=== PATIENT | male | born 1955 | race Caucasian/White ===

== ENCOUNTER 2019-12-07 08:42 | Inpatient (IN) | payer SELFPAY ==
[2019-12-07 09:07] LABS: #Eosinphils 0.2 thou/uL (0.0-0.7); #Lymphocytes 1.5 thou/uL (1.20-3.40); #Monocytes 0.7 thou/uL (0.11-0.59); #Neutrophils 5.6 thou/uL (1.40-6.50); %Basophils 0.5 % (0.0-1.0); %Eosinophils 2.2 % (0.0-10.0); %Lymphocytes 18.7 % (21.0-51.0); %Monocytes 9.1 % (0.0-10.0); %Neutrophils 69.5 % (42.0-75.0); Hemoglobin 15.2 g/dL (14.0-18.0); Mean Corpuscular HGB CONC 32.7 g/dL (32.0-36.0); Mean Corpuscular Hemoglobin 30.8 pg (27.0-31.0); Mean Corpuscular Volume 94.4 fL (78.0-98.0); Mean Platelet Volume 7.3 fL (7.4-10.4); Platelet Count 256 thou/uL (130-400); RBC Distribution Width 11.5 % (11.5-14.5); Red Blood Cell (RBC) Count 4.93 mill/uL (4.70-6.10)
--- NOTE | 2019-12-07 09:15 | CT ---
Exam: Head CT without contrast HISTORY: Level 2 stroke. Headache, starting Tuesday. Right-sided weakness. COMPARISON: none FINDINGS: Hemorrhage: There is a right frontal extra-axial hematoma which extends to the vertex, measuring 0.9 cm along the frontal convexity. Early chronic hematoma is suspected. There is isodense left frontal temporal and parietal extra-axial hematoma measuring 1.8 cm long the frontal temporal convexity, comp atible with a lead acute subdural hematoma. There is also evidence of hyperdense blood along the right parafalcine region. Slightly more hyperdense extra-axial hemorrhage is noted along the anterior inferior bifrontal convexities. Brain parenchyma: There is mass effect upon the left and right cerebrum. There is no midline shift. B asilar cisterns are patent. Ventricular system: No hydrocephalus. Calvarium: Intact. Sinuses and mastoid air cells: Adequate aeration. IMPRESSION: 1. Extensive bilateral left greater than right extra-axial hematoma is compatible with subdural hemat omas. 2. Small amount of right parafalcine hemorrhage. 2. Mass effect upon both frontal lobes. No midline shift. 4. Results of study discussed with Dr. Bradley 12/07/2019 9:12 AM Code CR
[2019-12-07] MEDS ORDERED: niCARdipine 20MG In NaCl 20 MG/200 ML BAG ONE (09:16)
--- NOTE | 2019-12-07 09:21 | RAD ---
Exam: Chest one view HISTORY:Transient ischemic attack Comparison: None FINDINGS: Cardiac silhouette: Normal Aorta: Unremarkable Pulmonary vessels: Normal Costophrenic angles: Clear LUNGS: No masses or consolidation. Scattered interstitial opacities which are presumed be chronic. Pneumothorax: None Osseous abnormalities: None IMPRESSION: Presumed chronic lung parenchymal changes.
[2019-12-07 09:34] LABS: ALT (SGPT) 13 U/L (8-55); AST (SGOT) 18 U/L (5-34); Albumin 4.3 g/dL (3.4-4.8); Alkaline Phosphatase 73 U/L (40-110); Anion Gap 13 mmol/L (10-20); BUN (Urea Nitrogen) 7 mg/dL (8.4-25.7); Bilirubin, Total 0.9 mg/dL (0.2-1.2); Calc. Creatinine Clearance 0 mL/min (70-130); Carbon Dioxide 25 mmol/L (23-31); Chloride 100 mmol/L (98-107); Estimated GFR-MDRD Greater than 90; Globulin 2.2 g/dL (2.4-3.5); Glucose 102 mg/dL (80-115); Protein, Total 6.5 g/dL (5.8-8.1); Sodium 134 mmol/L (136-145)
[2019-12-07 09:35] LABS: INR-International Normal Ratio 0.9; PTT 32.7 SEC (22.9-36.1); Prothrombin Time 12.1 SEC (12.0-14.7)
[2019-12-07] MEDS ORDERED: Thrombin 5000 UNITS/5 ML VIAL ONE (10:33)
[2019-12-07] MEDS ORDERED: Lidocaine 0.5%/Epinephrine 1:200,000 50 ml Vial ONE (10:40)
[2019-12-07] MEDS ORDERED: Fentanyl 100 MCG/2 ML VIAL ONE ×2 (10:43→12:50)
[2019-12-07] MEDS ORDERED: Famotidine/PF 20 mg/2ml Vial ONE (10:43)
[2019-12-07] MEDS ORDERED: Labetalol HCl 100 MG/20 ML VIAL SLOW IVP PRN (10:54)
[2019-12-07] MEDS ORDERED: Ondansetron PF 4 MG/2 ML Vial IVP PRN (10:54)
[2019-12-07] MEDS ORDERED: CEFAZOLIN 2 GM in Premix Bag 1 BAG IVPB SCH ×2 (11:00→19:00)
[2019-12-07] MEDS ORDERED: Dexamethasone 20 MG/5 ML VIAL ONE (13:41)
[2019-12-07] MEDS ORDERED: Rocuronium Bromide 10 MG/ML (10ML VIAL) ONE (13:41)
[2019-12-07] MEDS ORDERED: Lidocaine 1% PF 5 ML VIAL ONE (13:41)
[2019-12-07] MEDS ORDERED: PHENYLEPHRINE-NS 100 MCG/ML 10 ML SYRINGE ONE (13:41)
[2019-12-07] MEDS ORDERED: EPHEDRINE 25 MG/5 ML SYRINGE ONE (13:41)
[2019-12-07] MEDS ORDERED: Succinylcholine Chloride 20 MG/ML 10 ml SYRINGE FS ONE (13:41)
[2019-12-07] MEDS ORDERED: PROPOFOL 200 MG/20 ML VIAL ONE (13:41)
[2019-12-07] MEDS ORDERED: Ondansetron PF 4 MG/2 ML Vial ONE (13:41)
[2019-12-07] MEDS ORDERED: Metoclopramide HCl 10 MG/2 ML VIAL ONE (13:41)
[2019-12-07] MEDS ORDERED: Glycopyrrolate 0.2 MG/ML 5 ML SYRINGE ONE (13:41)
[2019-12-07] MEDS ORDERED: Ondansetron HCl/PF 4 MG/2 ML Vial IVP PRN (14:56)
[2019-12-07] MEDS ORDERED: Promethazine HCl 25 MG/ML VIAL SLOW IVP PRN (14:56)
--- NOTE | 2019-12-07 15:02 | PRG ---
DATE OF SERVICE: 12/07/2019 SUBJECTIVE: I personally examined the patient, reviewed the records and imaging, and agreed with documentation of Norman Haji PA-C. Briefly, Deyvi Fischer is a 64-year-old gentleman without a significant past medical history, who was evaluated by his primary care physician today and found to have right hemiparesis which was [id number], manifests mostly as a pronator drift. He was sent to the emergency department for evaluation where CT examination of brain revealed bilateral chronic subdural hematomas, larger on the left than the right, but with mass effect on both sides. OBJECTIVE: On examination, Mr. Fischer indeed had a right hemiparesis, did not have significant speech difficulty, however. ASSESSMENT AND PLAN: Mr. Fischer was taken from the emergency department to the operating room for bob hole evacuation of the subdural hematomas and placement of subdural drains. Consent was obtained. Job ID: [id number]
--- NOTE | 2019-12-07 15:18 | OP ---
DATE OF PROCEDURE: 12/07/2019 CAMELID FIBER SORTER: Norman Haji PA-C. PREOPERATIVE INDICATION: Prevent neurological deterioration. PREOPERATIVE DIAGNOSIS: Bilateral subdural hematomas, chronic, with mass effect. POSTOPERATIVE DIAGNOSIS: Bilateral subdural hematomas, chronic, with mass effect. OPERATIVE PROCEDURE: Bilateral bob hole evacuation of subdural hematomas and placement of subdural drains. DESCRIPTION OF PROCEDURE: The patient was brought to the operating room. General endotracheal anesthesia was induced. The patient was first placed in the right lateral decubitus position with the head supported by a gel-filled doughnut shaped headrest. Hair was removed with electric clippers in a paramedian fashion on the left side of the scalp, giving us access to the frontal parietal bones and an exit point for our drain. We marked out planned incisions, and under the daley, we infused local anesthetic. The scalp was sterilely prepped and draped. We opened 2 incisions with a 10 blade knife and controlled bleeding with bipolar and monopolar cautery. We dissected down to the periosteal layer and reflected laterally and we placed self-retaining retractors. With the high-speed drill and a perforating bit, we placed a bob hole in the frontal bone and parietal bone and waxed the edges of the bob hole. We coagulated the dura with bipolar cautery and then incised the dura starting with the parietal bob hole and then the frontal bob hole. As we incised, chronic appearing dark red blood products emanated under some pressure. With both bob holes open, we irrigated the subdural space until the irrigant ran clear. We then brought a red rubber catheter into the field. The 10-Guamanian catheter had extra side holes cut into it. We then advanced it gently into the subdural space through the parietal bob hole and tunneled posteriorly through a separate stab incision. We connected the distal part of the drain to an EVD drainage kit. We irrigated copiously with bacitracin irrigation through the bob holes and the drain was working nicely. We covered the bob holes with a large amount of Gelfoam and then closed the wounds in anatomical layers. After completion of the 1st portion of the operation, we turned the head to the left and supported it with a gel-filled doughnut shaped headrest on that side. Hair was removed in paramedian fashion on the right side of the scalp. We planned out our incisions as we had done on the previous side. We infused local anesthetic and we sterilely prepped and draped. On the right side, we also opened incisions over the frontal and parietal bones and used a high-speed drill to fashion bur holes. We waxed the edges of the bob holes. We then coagulated the dura and opened it in a cruciate fashion. We started with the parietal bob hole and then the frontal. Chronic appearing blood products emanated under some pressure. Through the parietal bob hole, there was an extra membrane deep that gave us access to another pocket of chronic appearing blood products. We irrigated copiously with bacitracin irrigation until the irrigant ran clear. A red rubber catheter was brought into the field and we cut extra side holes into it. Catheter was placed carefully in the subdural space and tunneled posteriorly through a separate stab incision to an EVD drainage system. We irrigated and tried to fill the subdural space with irrigant and then placed Gelfoam over the bob holes and closed the incisions in anatomical layers. We applied sterile dressings. This was a clean case, no contamination. Job ID: [id number]
[2019-12-07] MEDS: Sodium Chloride 0.9% 1,000 ML IV SCH (16:07)
[2019-12-07 17:19] VITALS: BMI 19.5
[2019-12-07] MEDS: CEFAZOLIN 2 GM in Premix Bag 1 BAG IVPB SCH (18:07)
[2019-12-07] MEDS: Pantoprazole 40 MG VIAL IVP SCH (19:58)
[2019-12-07] MEDS: Sodium Chloride 0.9% (PF) 10 ML VIAL FS PRN (19:58)
--- NOTE | 2019-12-07 21:50 | HP ---
DATE OF CONSULTATION: 12/06/2016 CHIEF COMPLAINT: "I have headache for 5 days now, it won't go away." HISTORY OF PRESENT ILLNESS: Mr. Fischer is a 64-year-old gentleman, who complains of headache since Tuesday and will not go away. He states he has right hemiparesis. He states he was started on losartan 25 mg and baby aspirin about 2 weeks ago from his primary care at [facility]. He states his headache has not been going away and still has profound right weakness which is affecting his gait. Denies any speech or memory issues. CURRENT MEDICATIONS: 1. Losartan 25 mg. 2. Aspirin 81 mg. ALLERGIES: NO KNOWN ALLERGIES. FAMILY HISTORY: Mother is alive and well. Father in 1982, had cancer and from an MS. SOCIAL HISTORY: One pack per day for 50+ years. Alcohol, 4 beers daily. SURGICAL/HOSPITALIZATION HISTORY: Denies any surgical or hospitalization history. REVIEW OF SYSTEMS: CONSTITUTIONL: Denies fever or chills. EAR, NOSE, AND THROAT: Denies change in vision or hearing. CARDIAC: Denies chest pain, shortness of breath, or diaphoresis. PULMONARY: Denies shortness of breath, cough, or hemoptysis. GI: Denies abdominal pain, nausea, vomiting, diarrhea, change in stool formation and consistency. : Denies trouble with urination, frequency of urination, or bloody urine. SKIN: Denies skin rash, bruising, bleeding, or skin masses. MUSCULOSKELETAL: Complains of right-sided weakness since Tuesday. NEUROLOGICAL: As per history of present illness. PSYCHOLOGICAL: Denies anxiety, depression, or behavior changes. LABORATORY DATA: WBC 8.0, platelet count 256. INR 0.9. IMAGING STUDIES: CT of the brain revealed bilateral chronic subdural hematomas, larger on the left than the right without mass effect on both sides. PHYSICAL EXAMINATION: VITAL SIGNS: Blood pressure in the emergency room was 143/73, pulse 78, respiratory rate 18. Pain scale was 0. HEENT: Pupils are equal. Extraocular movements are intact. NECK: Soft, supple. No masses are noted. Range of motion is intact and nonpainful. NEUROLOGICAL: Awake, alert, and oriented x3. Memory, attention, fund of knowledge normal. Cranial nerves grossly intact. Upper extremities; he has good strength on the left side in his deltoids, biceps, triceps, wrist extensions, fingers extensions, finger intrinsics. Sensation equal bilaterally. Lower extremities ; he has good strength on the left side in the iliopsoas, quadriceps, hamstrings, anterior tib, EHL, and gastrocnemius. There is no area of dermatomal sensory loss. The toes are downgoing. His upper extremities and lower extremities are 4/5. Movement against gravity with some resistance. PLAN: Mr. Fischer taken from the emergency department to the operation room for bilateral bob hole evacuation of the subdural hematomas. Subdural drains were placed bilaterally and the patient will be admitted to the ICU for further evaluation. Concent: We have discussed the indications, risks, benefits, alternatives and expected results from surgery. The risks discussed included, but were not limited to, bleeding infection, CSF leak, nerve damage, weakness, incontinence, paralysis, ventilator dependence, wheelchair dependence, stroke, loss of vision, cardiopulmonary complications of anesthesia, or . Patient states they understand the risks and are willing to proceed. Job ID: [id number] MTDD
[2019-12-08] MEDS: CEFAZOLIN 2 GM in Premix Bag 1 BAG IVPB SCH ×3 (01:57→17:09)
[2019-12-08] MEDS: Sodium Chloride 0.9% 1,000 ML IV SCH ×2 (04:18→17:09)
[2019-12-08] MEDS ORDERED: traMADol HCl 50 MG TAB PO PRN (06:31)
[2019-12-08] MEDS: Acetaminophen/Codeine 30-300mg Tablet PO PRN ×3 (06:52→21:12)
--- NOTE | 2019-12-08 07:51 | PRG ---
DATE OF SERVICE: We saw Mr. Fischer in the ICU this morning. He is one day out from bilateral bob hole evacuation of subdural hematoma. CT scan was done. Mr. Fischer is resting comfortably currently with his right shoulder down and the head of bed flat. He is awake and has no complaints other than feeling hungry. His T-max was 99.0. His blood pressures have been in the 130s. Does not have anymore pronator drift or focal neurological deficit. CT imaging this morning suggests some residual subdural fluid and air with marked reduction in the mass effect, as expected. We are going to mobilize him today and leave the drains in, re-scan him in the morning. If his scans have improved, we will remove the drain tomorrow. Job ID: [id number] [facility]
--- NOTE | 2019-12-08 08:39 | CT ---
PRELIMINARY REPORT/[facility]/EMERGENCY AFTER HOURS PROCEDURE: EXAM: CT Head, without Contrast DATE/ TIME: 12/08/2019, 6:37 AM INDICATION: S/P surgical evacuation of bilateral subdural hematomas. TECHNIQUE: Axial CT imaging was performed through the head without intravenous administration of con trast. Exam was performed using one or more of the following dose reduction techniques: automated exposure control, adjustment of the mA and/or kV according to patient size, or use of iterative recon struction technique. COMPARISON: CT Head 12/07/2019, 9:07 AM. FINDINGS: Two bob holes are now seen within each parietal bone superiorly. Through each posterior bur hole a percutaneous subdural drain has been placed. There are closing skin sal. The large bilateral subdural hematomas have been evacuated with gas and nonhemorrhagic fluid present in the subdural spaces bilaterally. The significant mass effect on prior exam from the subdural yue ections has been diminished. The brain does exhibit mild atrophy. Basilar cisterns are patent. The re is no midline shift. The brain exhibits normal murphy-white differentiation without CT evidence of an acute territorial infarct. Calcified atheroma is seen within the cavernous portions of the resident intern al carotid arteries compatible with intracranial atherosclerotic vascular disease (ASVD). Imaging begins at the mid maxillary level. Orbital structures are unremarkable. Paranasal sinuses a nd mastoid air cells are clear. IMPRESSION: 1. Postsurgical changes related to evacuation of bilateral subdural hematomas. 2. No evidence of a postprocedural complication. 3. Indwelling bilateral subdural drains with gas and nonhemorrhagic fluid in the residual bilateral subdural evacuated spaces. 4. Atrophy with intracranial ASVD. ELECTRONICALLY SIGNED BY: Dionte Graf DO Dec 08, 2019 7:31:52 AM CDT This report is intended for review by the ordering physician only, in accordance of law. If you recei ve this report in error, please call [facility] at [phone]. FINAL REPORT BRAIN CT WITHOUT IV CONTRAST: Comparison: 12-07-2019 FINDINGS: Recent post-operative craniotomy changes with right sided subdural drain with persistent prominent bi lateral CSF spaces with evacuation of the large subdural hemorrhagic changes bilaterally. Considerabl e improvement in the previously noted generalized mass effect when compared to the prior study. No ev idence for new hemorrhage. IMPRESSION: Post-surgical changes for bilateral subdural hematomas. No evidence for new hemorrhage. Improvement i n the amount of mass effect from prior study. Continued short term follow up.
[2019-12-08] MEDS: Pantoprazole 40 MG VIAL IVP SCH ×2 (08:44→21:13)
[2019-12-08] MEDS: Acetaminophen 325 MG TAB PO PRN (17:24)
[2019-12-08] MEDS: Sodium Chloride 0.9% (PF) 10 ML VIAL FS PRN (21:13)
[2019-12-09] MEDS: CEFAZOLIN 2 GM in Premix Bag 1 BAG IVPB SCH ×2 (02:09→08:46)
[2019-12-09] MEDS: Acetaminophen/Codeine 30-300mg Tablet PO PRN (03:43)
[2019-12-09] MEDS: Sodium Chloride 0.9% 1,000 ML IV SCH ×2 (03:44→08:55)
--- NOTE | 2019-12-09 07:29 | CT ---
PRELIMINARY REPORT/[facility]/AFTER HOURS PROCEDURE CT HEAD WITHOUT INTRAVENOUS CONTRAST: CLINICAL HISTORY: [facility] followup. TECHNIQUE: Axial computed tomography images of the head/brain without intravenous contrast. COMPARISON: CT\SR - CT BRAIN WO CON - 12/08/2019 06:36 AM CDT FINDINGS: BRAIN: No acute intraparenchymal hemorrhage. No mass lesion. No CT evidence for acute territorial inf arct. No midline shift. VENTRICLES: No hydrocephalus. ORBITS: The orbits are unremarkable. SINUSES AND MASTOIDS: The paranasal sinuses and mastoid air cells are clear. SOFT TISSUES: No significant facial or scalp soft tissue swelling evident. No radiopaque foreign body is seen. BONES: No acute skull fracture. MISCELLANEOUS: There is a pneumocephaly with extra axial fluid collection, similar to the prior exami nation. Bilateral shunt catheters are unchanged. IMPRESSION: 1. There is a pneumocephaly with extra axial fluid collection, similar to the prior examination. 2. Bilateral shunt catheters are unchanged. ELECTRONICALLY SIGNED BY: Darrick Newton MD Dec 09, 2019 4:42:37 AM CDT This report is intended for review by the ordering physician only, in accordance of law. If you recei ve this report in error, please call [facility] at [phone]. FINAL REPORT EMERGENT AFTER HOURS CT BRAIN WITHOUT IV CONTRAST: 12/09/2019 4:32 a.m. COMPARISON: 12/08/2019 FINDINGS: Persistent bilateral subdural air and fluid collections with bilateral subdural drains in place. No e vidence for new hemorrhage. This report is in agreement with the preliminary report. CODE QA
[2019-12-09 08:30] VITALS: TEMP 98.1
--- NOTE | 2019-12-09 08:32 | PRG ---
DATE OF SERVICE: 12/09/2019 I saw Mr. Fischer in the ICU this morning. He is 2 days out from bob hole evacuation of bilateral subdural hematomas. His drains are still in place. A morning CT scan was done. He has no complaints overnight and notices he keeps getting stronger and stronger and has returned to normal. The maximum temperature recorded of 99.0 degrees Fahrenheit. Blood pressures have been between the 130s and 160s. I do not find any pronator drift or neglect or lateralizing motor or sensory deficits. A CT scan this morning shows a combination of pneumocephalus and fluid in the subdural space. These spaces are not under significant pressure, but continue to exist. Nonetheless, I think the drains have done all that they can. We will remove them this morning. I will have him lie flat for another hour after that removal and then slowly get up and leave the ICU. If he is safe for all of his activities of daily living and wants to leave the hospital this afternoon, that is a possibility. Job ID: [id number] [facility]
[2019-12-09] MEDS: Pantoprazole 40 MG VIAL IVP SCH (08:46)
[2019-12-09] MEDS: Sodium Chloride 0.9% (PF) 10 ML VIAL FS PRN (08:47)
[2019-12-09] MEDS: Acetaminophen 325 MG TAB PO PRN (16:46)
--- NOTE | 2019-12-10 12:40 | DIS ---
DATE OF ADMISSION: 12/07/2019 DATE OF DISCHARGE: 12/09/2019 HOSPITAL COURSE: Mr. Fischer is a 64-year-old gentleman who came into [facility] Emergency Room due to headache for five days that would not go away. In the emergency room, he presented with right hemiparesis, right facial droop, and altered gait. The patient denied difficulty in speech, fever, or altered mental status. He states that he recently started losartan and a baby aspirin 2 weeks ago from a primary care. CT of the brain in the emergency room revealed bilateral chronic subdural hematomas, larger on the left than on the right without a mass effect on both sides. He was brought to the operating room for immediate bilateral bob hole evacuation of the subdural hematomas. Subdural drains were placed bilaterally and the patient was admitted to the ICU for further evaluation. After two days postop, the drains were doing all they could do. They were removed in the morning. Blood pressures during his visits were between 130s and 160s. No fevers were noted in the electronic notes. His neurological exam is stable. Once he was safe for all activities of daily living, he was discharged. CONDITION ON DISCHARGE: The patient had no emergencies. Condition was stable for discharge. MEDICATIONS: Home going medications were reviewed. FOLLOWUP: Followup arrangements and repeat imaging were made by our education coordinator in the clinic and called to the patient. ACTIVITIES: Restrictions were given in person. Wound care showers are acceptable. The patient should pat the incision dry, but not submerge it under the surface of the body of water for two months. Job ID: [id number]
--- NOTE | 2019-12-12 08:00 | PQF ---
Deyvi Fischer L GERARD MD [id number] CLINICAL DOCUMENTATION CLARIFICATION FORM: POST DISCHARGE Addendum to original discharge summary date: ____ Late entry note date: __ DATE: 12/12/2019 ATTN:Destiney MCLEAN MD Please exercise your independent, professional judgment in responding to the clarification form. Clinical indicators are provided on the bottom of this form for your review Please check appropriate box(s): [ ] Cerebral edema / Vasogenic edema [ ] Compression of brain Due to: [ ] Intracranial tumor [ ] Intracranial hematoma [ ] Acute cerebral infarction [ ] Traumatic brain injury [ ] Obstructive hydrocephalus [ ] Other diagnosis [ ] Unable to determine For continuity of documentation, please document condition throughout progress notes and discharge summary. Thank You. CLINICAL INDICATORS - SIGNS / SYMPTOMS / LABS - some residual subdural fluid and air with marked reduction in the payton effect, as expected- Progress note, 12/08, Destiney MCLEAN MD - he has right hemiparesis- H&P, 12/06, Norman Haji MD, - profound right weakness which is affecting his gait- H&P, 12/06, Norman Haji MD - Bilateral subdural hematomas, chronic with mass effect- OP report, 12/06, Destiney MCLEAN MD RISK FACTORS - Bilateral subdural hematomas- Progress note, 12/08, Destiney MCLEAN MD - Bilateral bob hole evacuation- OP report, 12/06, Destiney MCLEAN MD TREATMENTS: - Decadron-IV- OCT,12/06 (This form is maintained as a part of the permanent medical record) 2014 [employer]. All Rights Reserved Juan [email or web address]
--- NOTE | 2019-12-14 14:49 | EKG ---
Test Reason : Blood Pressure : / mmHG Vent. Rate : 059 BPM Atrial Rate : 059 BPM P-R Int : 126 ms QRS Dur : 096 ms QT Int : 410 ms P-R-T Axes : 062 018 046 degrees QTc Int : 405 ms Sinus bradycardia Incomplete right bundle branch block Borderline ECG Confirmed by AYESHA JIMENEZ ([id number]), senior technical editor GI SANTIAGO ([id number]) on 12/14/2019 2:48:53 PM Referred By: Confirmed By:AYESHA JIMENEZ
== END 2019-12-09 17:00 | disposition home or self-care (01) | DRG 26 ==
LOC: ERS 08:42 → CCU 15:38
PROVIDERS: ADMIT Neurological Surgery; ATTEND Neurological Surgery
PROC: 00C40ZZ Extirpation of Matter from Intracranial Subdural Space, Open Approach (ICD-10-PCS; principal; 2019-12-07)
PROC: 009400Z Drainage of Intracranial Subdural Space with Drainage Device, Open Approach (ICD-10-PCS; 2019-12-07)
DX: I62.03 Nontraumatic chronic subdural hemorrhage (principal); G81.91 Hemiplegia, unspecified affecting right dominant side; I10 Essential (primary) hypertension; F17.210 Nicotine dependence, cigarettes, uncomplicated
CPT/HCPCS: 36416; 70450; 71045; 80053; 84484; 85025; 85610; 85730; 93005; 96365; 96366; C9113; J0690; J1100; J2001; J2405; J2704; J2765; J3010; S0028

== ENCOUNTER 2020-12-01 09:06 | Outpatient (CLI) | payer MEDICARE ==
[2020-12-01] MEDS ORDERED: Iopamidol 370 76% 100 ML VIAL ONE (14:31)
== END 2020-12-01 09:07 | disposition home or self-care (01) ==
LOC: BICCT 09:06
PROVIDERS: ATTEND Nurse Practitioner Family
DX: I62.9 Nontraumatic intracranial hemorrhage, unspecified (principal); R94.31 Abnormal electrocardiogram [ECG] [EKG]; E78.5 Hyperlipidemia, unspecified; F17.210 Nicotine dependence, cigarettes, uncomplicated; R53.1 Weakness; Z86.718 Personal history of other venous thrombosis and embolism; Z86.79 Personal history of other diseases of the circulatory system; J44.9 Chronic obstructive pulmonary disease, unspecified; J98.4 Other disorders of lung; K57.30 Diverticulosis of large intestine without perforation or abscess without bleeding; M43.17 Spondylolisthesis, lumbosacral region; I25.10 Atherosclerotic heart disease of native coronary artery without angina pectoris; I70.0 Atherosclerosis of aorta
CPT/HCPCS: 71260; 74177; Q9967

== ENCOUNTER 2020-12-03 06:47 | Outpatient (CLI) | payer MEDICARE | END 2020-12-03 06:48 | disposition home or self-care (01) | LOC: BICULT 06:47 | PROVIDERS: ATTEND Nurse Practitioner Family | DX: R94.5 Abnormal results of liver function studies (principal) | CPT/HCPCS: 76705 ==